=== PATIENT | male | born 1975 | race Caucasian/White ===

== ENCOUNTER 2020-07-24 20:11 | Emergency (ER) | payer SELFPAY | END 2020-07-24 21:31 | disposition home or self-care (01) | LOC: ERS 20:11 | DX: S92.411A Displaced fracture of proximal phalanx of right great toe, initial encounter for closed fracture (principal); F17.220 Nicotine dependence, chewing tobacco, uncomplicated; W20.8XXA Other cause of strike by thrown, projected or falling object, initial encounter | CPT/HCPCS: 99283 ==

== ENCOUNTER 2021-09-07 00:17 | Observation (INO) | payer SELFPAY ==
[2021-09-07 00:36] VITALS: BMI 26.6
[2021-09-07] MEDS ORDERED: Nitroglycerin 0.4 MG TAB (25 Tab Bottle) SL PRN (01:34)
[2021-09-07] MEDS ORDERED: Acetaminophen 325 MG TAB PO PRN (01:34)
[2021-09-07] MEDS ORDERED: Aspirin Chewable 81 MG TAB PO SCH ×2 (02:00→09:00)
[2021-09-07 03:00] LABS: Troponin I Less than 0.010 ng/mL (< 0.028)
[2021-09-07 03:08] LABS: Hemoglobin A1c 5.2 % (4.0-6.0)
[2021-09-07 05:39] LABS: Cardiac Risk 4.2 (Less than 4.5)
[2021-09-07 05:44] LABS: Troponin I Less than 0.010 ng/mL (< 0.028)
[2021-09-07] MEDS ORDERED: Morphine 2 MG/ML VIAL SLOW IVP PRN (08:29)
[2021-09-07] MEDS ORDERED: ADENOSINE 60 MG/20 ML VIAL ONE (09:07)
[2021-09-07 09:29] LABS: Troponin I Less than 0.010 ng/mL (< 0.028)
[2021-09-07 15:58] LABS: Amphetamine Not Detected (NotDetected); Barbiturates Screen Not Detected (NotDetected); Benzodiazepine Screen Not Detected (NotDetected); Cocaine Metabolite Screen Not Detected (NotDetected); Methadone Not Detected (NotDetected); Methamphetamine Not Detected (NotDetected); Opiate Screen Not Detected (NotDetected); Oxycodone Screen Not Detected (NotDetected); Phencyclidine (PCP) Not Detected (NotDetected); THC/Cannabinoid Screen Not Detected (NotDetected); Tricyclic Screen Not Detected (NotDetected)
[2021-09-07 16:25] VITALS: BP 122/71; TEMP 96.9
== END 2021-09-07 16:20 | disposition home or self-care (01) ==
LOC: NEURO 00:20
PROVIDERS: ADMIT Family Medicine; ATTEND Family Medicine
DX: R07.89 Other chest pain (principal); R20.0 Anesthesia of skin; Z87.891 Personal history of nicotine dependence
CPT/HCPCS: 36415; 70551; 78452; 80061; 80306; 83036; 84443; 84484; 93005; 93010; 93017; 94760; A9500; G0378; J0153